=== PATIENT | male | born 2000 | race Caucasian/White ===

== ENCOUNTER 2025-01-20 07:50 | Emergency (ER) | payer MEDICAID, SELFPAY ==
[2025-01-20 07:50] VITALS: PULSE 80; RESP 16; O2SAT 99
[2025-01-20 07:57] VITALS: BP 149/90; PULSE 89; RESP 18; TEMP 36.8; O2SAT 100; BMI 22.9
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
[2025-01-20] MEDS: HYDROcodone/APAP 5/325 TABLET 1 TAB PO ×2 (10:09→13:20)
[2025-01-20 10:37] LABS: Basophils # (Auto) 0.0 Thou/mm3 (0.0-0.2); Basophils % (Auto) 0 % (0-2.5); Eosinophils # (Auto) 0.1 Thou/mm3 (0.0-0.5); Eosinophils % (Auto) 1 % (0-10); Hematocrit 39.4 % (41.0-53.0); Hemoglobin 13.4 g/dL (13.5-16.0); Immature Granulocytes Auto 0.03 Thou/mm3 (0.00-0.00); Lymphocytes # (Auto) 1.4 Thou/mm3 (1.0-4.8); Lymphocytes % (Auto) 12 % (10-50); Mean Corpuscular HGB Conc 34.0 g/dl (31.0-37.0); Mean Corpuscular Hemoglobin 29.8 pg (25.0-35.0); Mean Corpuscular Volume 88 fL (80-100); Monocytes # (Auto) 1.0 Thou/mm3 (0.0-0.8); Monocytes % (Auto) 9 % (0-12); Neutrophils # (Auto) 8.9 Thou/mm3 (1.8-7.7); Neutrophils % (Auto) 78 % (37-80); Nucleated Red Blood Cell # 0.00 Thou/mm3 (0.00-0.00); Nucleated Red Blood Cell % 0 /100 WBC (0); Platelet Count 195 Thou/mm3 (140-440); RDW Standard Deviation 39.4 fL (35.1-43.9); Red Blood Count 4.50 Miln/mm3 (4.50-5.90); White Blood Count 11.4 Thou/mm3 (3.8-10.6)
--- NOTE | 2025-01-20 11:31 | PC.CC ---
Addendum entered by Nevaeh Feliz 01/20/25 11:35: 1134-[facility] ASSISTANT DIRECTOR [facility] Specialist Kailyn Panuitt provided community resources to the pt as well as wound care information specifically to the facility whom which he was referred to. Pt will f/u with the [facility] for appointments. Original Note: 1131-Per ER providers request, ASW submitted necessary docs to [facility] to complete a wound care referral. ASW submitted the wound care referral to [facility] facility.
== END 2025-01-20 13:40 | disposition home or self-care (01) ==
PROVIDERS: Emergency Provider Emergency Medicine
DX: M79.651 Pain in right thigh (principal); S71.101A Unspecified open wound, right thigh, initial encounter; W34.00XA Accidental discharge from unspecified firearms or gun, initial encounter; Y92.828 Other wilderness area as the place of occurrence of the external cause
CPT/HCPCS: 97597; 36415; 85025; 99283; A9270